=== PATIENT | male | born 2000 | race African-American/Black ===

== ENCOUNTER 2022-06-08 06:43 | Emergency (ER) | payer SELFPAY ==
[~2022-06-08] VITALS: Ht 182.9 cm; Wt 84.1 kg
[2022-06-08] MEDS ORDERED: AMOXICILLIN 50500 MG PO (07:29)
[2022-06-08 07:53] VITALS: BP 154/74; PULSE 60; TEMP 97.9
== END 2022-06-08 07:56 | disposition home or self-care (01) ==
LOC: COL.ER 06:43
DX: K04.7 Periapical abscess without sinus (principal); K02.9 Dental caries, unspecified; Z28.310 Unvaccinated for COVID-19